=== PATIENT | male | born 1955 | race Caucasian/White ===

== ENCOUNTER 2018-12-04 16:31 | Inpatient (IN) | payer OTHER ==
[~2018-12-04] VITALS: Ht 182.9 cm; Wt 98.0 kg
[2018-12-04 18:27] VITALS: PULSE 117
[2018-12-04 18:28] VITALS: BP 141/82; PULSE 97; RESP 18
[2018-12-04] MEDS ORDERED: NACL 0.9% 3 ML SYG IV SCH (19:30)
[2018-12-04] MEDS ORDERED: LORAZEPAM 4 MG/ML VIAL IV PRN (19:30)
[2018-12-04 19:48] VITALS: Ht 182.9 cm; Wt 98.0 kg
[2018-12-04 20:00] VITALS: BP 149/69; PULSE 87; RESP 23
[2018-12-04 20:04] VITALS: PULSE 96
[2018-12-04] MEDS: DEXTROSE 5%-0.45% NACL 1,000 ML IV SCH (20:40)
[2018-12-04 22:42] VITALS: PULSE 142
[2018-12-04] MEDS: OCTREOTIDE 1 MG in DEXTROSE 5% 95 ML IV SCH (23:13)
[2018-12-04] MEDS: morphine SULFATE/PF (2 MG/2 ML) SYG IV PRN (23:15)
[2018-12-04] MEDS: PANTOPRAZOLE IV 80 MG in SOD CHLORIDE 0.9% 100 ML IV SCH (23:53)
[2018-12-05] VITALS (19 sets, daily range): BP systolic 112–148; BP diastolic 67–94; PULSE 63–90; RESP 17–22
[2018-12-05] MEDS ORDERED: PENDING SANTYL ORDER FOR WOUND CARE XX PRN (01:00)
[2018-12-05] MEDS: DEXTROSE 5%-0.45% NACL 1,000 ML IV SCH ×2 (03:16→06:36)
[2018-12-05] MEDS: morphine SULFATE/PF (2 MG/2 ML) SYG IV PRN ×5 (03:35→21:17)
[2018-12-05] MEDS ORDERED: METO-448 PO (05:26)
[2018-12-05] MEDS ORDERED: HYDR-4011 PO (05:26)
[2018-12-05] MEDS ORDERED: AMLO-147 PO (05:26)
[2018-12-05] MEDS: PANTOPRAZOLE IV 80 MG in SOD CHLORIDE 0.9% 100 ML IV SCH (07:11)
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
[2018-12-05] MEDS ORDERED: POTASSIUM CHLORIDE 100 ML IVPB ONE (10:30)
[2018-12-05] MEDS: PANTOPRAZOLE 40 MG INJ IV SCH (10:36)
[2018-12-05] MEDS: MULTIVITAMINS 10 ML, THIAMINE 100 MG, FOLIC ACID 1 MG in SOD CHLORIDE 0.9% 1,000 ML IVPB SCH (10:36)
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
[2018-12-05] MEDS ORDERED: MAGNESIUM SULFATE 4 GM/100 ML 100 ML IVPB ONE (14:00)
--- NOTE | 2018-12-05 14:08 | RADRPT ---
Echocardiogram Report Patient Name: VALERIE CLARKE Gender: Male Date: 1955 Study Date: 05-Dec-2018 [employer]: Namrata [facility] Location: [address] Ref. Physician: NILS STEELE Quality: Adequate Procedures: Transthoracic echocardiogram with complete 2D, M-Mode, and doppler examination. Indications: Atrial Fibrillation. 2D/M Mode Doppler Measurement Value Normal Ranges Measurement Value Normal Ranges LVIDd 2D 5.0 3.5 - 5.6 cm VELIA VTI 1.0 cm2 LVIDs 2D 3.3 2.1 - 4.1 cm AV Mean Keshav 1.7 m/sec LVPWd 2D 1.3 0.6 - 1.1 cm AV Mean PG 13.0 mmHg IVSd 2D 1.3 0.6 - 1.1 cm AV VTI 58.2 cm AoR Diam 2D 3.5 2.0 - 3.7 cm LVOT Mean Keshav 0.6 m/sec LA/Ao 2D 1 0 - 1 LVOT Mean PG 1.0 mmHg LA Dimen 2D 5.2 2.3 - 4.0 cm LVOT Peak Keshav 0.8 m/sec LVOT Diam 2.1 cm LVOT Peak PG 2.0 mmHg MV E Peak Keshav 0.9 m/sec MV A Peak Keshav 0.4 m/sec MV E/A 2.0 MV Decel Time 208 msec Lat E` Keshav 0.1 m/sec Lateral E/E` 16.4 Med E` Keshav 0.1 m/sec MV E/A 2.0 TR Peak Keshav 3.2 m/sec TR Peak PG 41.0 mmHg RVSP 44.0 mmHg Findings Left Ventricle: Normal left ventricular systolic function. Normal left ventricular cavity size. Mild concentric left ventricular hypertrophy. Ejection fraction is visually estimated at 55 %. Abnormal Diastolic Function. Right Ventricle: Normal right ventricular size. Normal right ventricular systolic function. Left Atrium: There is severe enlargement of left atrium. Right Atrium: The right atrium is normal in size. Mitral Valve: Mild mitral leaflet calcification. Mild mitral annular calcification. Trace mitral regurgitation. Aortic Valve: Mild aortic stenosis. Mean PG 13.00 mmHg. Aortic cusps appear severely calcified. Trace aortic valve regurgitation. Tricuspid Valve: Normal appearance of the tricuspid valve. Estimated peak PA systolic pressure 44 mmHg. There is mild tricuspid regurgitation. Pulmonic Valve: Pulmonic valve not well visualized. There is trace pulmonic regurgitation. Pericardium: Normal pericardium with no significant pericardial effusion. Aorta: Normal aortic root. IVC: Normal size and normal respiratory collapse consistent with normal right atrial pressure. Conclusions Normal left ventricular systolic function. Normal left ventricular cavity size. Mild concentric left ventricular hypertrophy. Ejection fraction is visually estimated at 55 %. Abnormal Diastolic Function. Normal right ventricular size. Normal right ventricular systolic function. There is severe enlargement of left atrium. The right atrium is normal in size. Mild aortic stenosis. Mean PG 13.00 mmHg. Aortic cusps appear severely calcified. Trace aortic valve regurgitation. Normal appearance of the tricuspid valve. Estimated peak PA systolic pressure 44 mmHg. There is mild tricuspid regurgitation. Mild mitral leaflet calcification. Mild mitral annular calcification. Trace mitral regurgitation. Normal pericardium with no significant pericardial effusion. Electronically Signed By: Jason Ackerman 05-Dec-2018 14:07:34 -0800 Patient Name: VALERIE CLARKE Study Date: 05-Dec-2018 [id number]
--- NOTE | 2018-12-05 15:10 | CONS ---
Date/Time of Note Date/Time of Note DATE: 12/05/18 TIME: 14:52 Assessment/Plan Assessment/Plan Assessment/Plan Assessment: Hematemesis/melena History of bleeding gastric ulcer one year ago Alcoholic liver disease Homelessness 2 large abdominal hernias with decreased incisional wound Alcohol abuse Pancytopenia secondary Chronic depression A. fib RVR likely due to alcoholism Cholelithiasis Plan: EGD today Continue octreotide drip Continue PPI Monitor H&H Transfuse for hemoglobin less than 7.5 Patient will need paracentesis Will restart on Aldactone and Lasix tomorrow Patient seen in collaboration with Result Diagram: 12/05/18 0632 12/05/18 0631 Results 24hrs Laboratory Tests Test 12/05/18 02:30 12/05/18 06:31 12/05/18 06:32 12/05/18 09:50 Stool Occult Blood POSITIVE Sodium Level 138 Potassium Level 3.1 L Chloride Level 102 Carbon Dioxide Level 25 Anion Gap 11 Blood Urea Nitrogen 12 Creatinine 0.62 Est Glomerular Filtrat > 60 Rate mL/min Glucose Level 152 Calcium Level 8.4 Phosphorus Level 2.7 Magnesium Level 1.6 L Total Bilirubin 1.4 H Direct Bilirubin 0.00 Indirect Bilirubin 1.4 H Aspartate Amino 36 Transf (AST/SGOT) Alanine 10 L Aminotransferase (ALT/SG PT) Alkaline Phosphatase 115 Total Protein 8.0 Albumin 3.0 L Globulin 5.00 H Albumin/Globulin Ratio 0.60 White Blood Count 2.5 L Red Blood Count 3.46 L Hemoglobin 9.2 L Hematocrit 28.7 L Mean Corpuscular Volume 82.9 Mean Corpuscular 26.6 L Hemoglobin Mean Corpuscular 32.1 Hemoglobin Concent Red Cell Distribution 16.6 H Width Platelet Count 71 L Mean Platelet Volume 10.5 H Immature Granulocytes % 0.400 Neutrophils % 60.5 Segmented Neutrophils 65 % (Manual) Band Neutrophils % 5 H (Manual) Lymphocytes % 23.8 Lymphocytes % (Manual) 22 Reactive Lymphocytes 3 H % (Manual) Monocytes % 14.1 H Monocytes % (Manual) 3 Eosinophils % 0.8 Eosinophils % (Manual) 1 Basophils % 0.4 Basophils % (Manual) 1 Nucleated Red Blood 0.0 Cells % Immature Granulocytes # 0.010 Neutrophils # 1.5 L Neutrophils # (Manual) 1.6 Band Neutrophils # 0.1 Lymphocytes (Manual) 0.5 L Lymphocytes # 0.6 L Reactive Lymphocytes # 0.0 Monocytes # 0.4 Monocytes # (Manual) 0.0 L Eosinophils # 0.0 Basophils # 0.0 Basophils # (Manual) 0.0 Nucleated Red Blood 0.0 Cells # Platelet Estimate DECREASED Giant Platelets 1 H Polychromasia 2+ Poikilocytosis 1+ Anisocytosis 1+ Ovalocytes 1+ Hemoglobin A1c 5.3 Prothrombin Time 16.7 H Prothrombin Time Ratio 1.3 INR International 1.34 Normalized Ratio Activated 36.9 H Partial Thromboplast Time CC: SOFIA TARIQ MD ; Consultation Date/Type/Reason Admit Date/Time Dec 04, 2018 at 17:58 Date of Consultation: Dec 05, 2018 Type of Consult GI Reason for Consultation Hematemesis/melena Hx of Present Illness This is a 63-year-old male with a history of bleeding gastric ulcer and alcoholic liver disease who presents with hematemesis and melena. Patient states his symptoms started yesterday when he had 4 episodes of bloody emesis and 6 episodes of loose melanotic stool. Patient reports a history of bleeding ulcer one year ago diagnosed on EGD. Patient also had abdominal hernias repaired with complications and wound adhesion, currently has 2 large abdominal hernias secured with abdominal binder and midline abdominal wound covered with dressing. Patient is homeless and currently drinking. His last drink was 3 days ago. Last colonoscopy was 1 year ago. Patient does not recall whether he had variances on the last EGD. He is currently on Lasix and Spironolactone for ascites however reports misplacing his meds. Patient currently denies nausea, vomiting, hematochezia, constipation or fever. Patient is complaining of abdominal pain from bursitis and right broken rib. His current hemoglobin is 9.4. The plan is to do an EGD today for hemostasis. Risks and benefits of the procedure have been discussed with the patient. Patient is agreeable for the procedure. Gastrointestinal: no complaints (See HPI) Past Medical History Medical History: no pertinent history Medications Current Medications Dextrose/Sodium Chloride 1,000 ml @ 75 mls/hr [id number] IV Last administered on 12/05/18at 06:36; Admin Dose 125 MLS/HR; Start 12/04/18 at 19:16 IV Flush (NS 3 ml) 3 ml PER PROTOCOL IV ; Start 12/04/18 at 19:30 Ondansetron HCl (Zofran Inj) 4 mg Q6H PRN IV NAUSEA AND/OR VOMITING; Start 12/04/18 at 19:30 Morphine Sulfate (morphine SULFATE (PF)) 2 mg Q4H PRN IV SEVERE PAIN LEVEL 7-10 Last administered on 12/05/18at 11:37; Admin Dose 2 MG; Start 12/04/18 at 19:30 Octreotide Acetate 1 mg/ Dextrose 100 ml @ 5 mls/hr Q20H IV Last administered on 12/04/18at 23:13; Admin Dose 5 MLS/HR; Start 12/04/18 at 19:30 Lorazepam (Ativan) 1 mg Q6H PRN IV CONTROL WITHDRAWAL SYMPTOMS Last administered on 12/04/18at 20:40; Admin Dose 1 MG; Start 12/04/18 at 19:30 Multivitamins 10 ml/Thiamine HCl 100 mg/Folic Acid 1 mg/Sodium Chloride 1,011.2 ml @ 125 mls/ hr DAILY@09 IVPB Last administered on 12/05/18at 10:36; Admin Dose 125 MLS/HR; Start 12/05/18 at 09:00 Miscellaneous Information (Pending [facility] Order For Wound Care) This patient sanchez... PRN PRN XX PRESSURE WOUND; Start 12/05/18 at 01:00 Influenza Virus Vaccine Quadrival (Fluzone) 0.5 ml ONCE ONCE IM* ; Start 12/06/18 at 10:00; Stop 12/06/18 at 10:01 Pantoprazole (Protonix Iv) 40 mg DAILY@06 IV Last administered on 12/05/18at 10:36; Admin Dose 40 MG; Start 12/05/18 at 09:30 Magnesium Sulfate 100 ml @ 25 mls/hr ONCE ONCE IVPB ; Start 12/05/18 at 14:00; Stop 12/05/18 at 17:59 Clonidine HCl (Catapres-Tts 1 Patch) 1 patch Q7D TRANSDERM ; Start 12/06/18 at 14:00 Potassium Chloride (Klor-Con 20) 40 meq DAILY PO ; Start 12/05/18 at 14:30 Allergies: Coded Allergies: No Known Allergy (Unverified , 12/04/18) Past Surgical History Hernia repair Social History Alcohol Use: heavy Smoking Status: Never smoker Exam/Review of Systems Vital Signs Vitals Vital Signs Date Temp Pulse Resp B/P (MAP) Pulse Ox O2 O2 Flow FiO2 Time Delivery Rate 12/05/18 77 12:31 12/05/18 98.0 18 132/83 97 Room Air 11:09 (99) Intake and Output 12/04/18 12/04/18 12/05/18 1515:00 23:00 07:00 IntakeIntake Total 2105 ml OutputOutput Total 950 ml BalanceBalance 1155 ml Exam PHYSICAL EXAMINATION: GENERAL: Well developed, well nourished, alert & oriented x 3, in no acute distress SKIN: Midline abdominal wound, multiple bruising, no evidence of bleeding diathesis LYMPHATIC: No palpable lymphadenopathy. HEAD: Normocephalic, atraumatic, no tenderness. EYES: Pupils equal reactive to light and accommodation, full extraocular movements, sclera clear, non-icteric, no discharge. EARS/NOSE AND THROAT: Ears normal, nose normal, oropharynx normal, oral membranes well hydrated without lesions. NECK: Supple, no masses, thyroid normal, JVP within normal limits, carotids normal without bruits. CHEST: Inspection within normal limits. CARDIOVASCULAR: Heart: Regular rate and rhythm, no murmurs, gallops or rubs. Peripheral pulses present within normal limits, no cyanosis, clubbing or edemas. No pulsatile abdominal mass RESPIRATORY: Lungs clear to auscultation and percussion, no wheezing, no rubs GASTROINTESTINAL AND LIVER: Abdomen: Soft, generalized tenderness, moderate ascites, 2 large abdominal hernias, distended, midline decreased wound covered with dressing, no guarding, no rebound tenderness, normoactive bowel sounds. Rectal: Deferred. GENITOURINARY: [Male genitalia within normal limits. EXTREMITIES: No cyanosis, clubbing or edema. Medications Medications Current Medications Dextrose/Sodium Chloride 1,000 ml @ 75 mls/hr [id number] IV Last administered on 12/05/18at 06:36; Admin Dose 125 MLS/HR; Start 12/04/18 at 19:16 IV Flush (NS 3 ml) 3 ml PER PROTOCOL IV ; Start 12/04/18 at 19:30 Ondansetron HCl (Zofran Inj) 4 mg Q6H PRN IV NAUSEA AND/OR VOMITING; Start 12/04/18 at 19:30 Morphine Sulfate (morphine SULFATE (PF)) 2 mg Q4H PRN IV SEVERE PAIN LEVEL 7-10 Last administered on 12/05/18at 11:37; Admin Dose 2 MG; Start 12/04/18 at 19:30 Octreotide Acetate 1 mg/ Dextrose 100 ml @ 5 mls/hr Q20H IV Last administered on 12/04/18at 23:13; Admin Dose 5 MLS/HR; Start 12/04/18 at 19:30 Lorazepam (Ativan) 1 mg Q6H PRN IV CONTROL WITHDRAWAL SYMPTOMS Last administered on 12/04/18at 20:40; Admin Dose 1 MG; Start 12/04/18 at 19:30 Multivitamins 10 ml/Thiamine HCl 100 mg/Folic Acid 1 mg/Sodium Chloride 1,011.2 ml @ 125 mls/ hr DAILY@09 IVPB Last administered on 12/05/18at 10:36; Admin Dose 125 MLS/HR; Start 12/05/18 at 09:00 Miscellaneous Information (Pending [facility] Order For Wound Care) This patient sanchez... PRN PRN XX PRESSURE WOUND; Start 12/05/18 at 01:00 Influenza Virus Vaccine Quadrival (Fluzone) 0.5 ml ONCE ONCE IM* ; Start 12/06/18 at 10:00; Stop 12/06/18 at 10:01 Pantoprazole (Protonix Iv) 40 mg DAILY@06 IV Last administered on 12/05/18at 10:36; Admin Dose 40 MG; Start 12/05/18 at 09:30 Magnesium Sulfate 100 ml @ 25 mls/hr ONCE ONCE IVPB ; Start 12/05/18 at 14:00; Stop 12/05/18 at 17:59 Clonidine HCl (Catapres-Tts 1 Patch) 1 patch Q7D TRANSDERM ; Start 12/06/18 at 14:00 Potassium Chloride (Klor-Con 20) 40 meq DAILY PO ; Start 12/05/18 at 14:30 HARRIET SMITH NP Dec 05, 2018 15:05
[2018-12-05] MEDS ORDERED: LIDOCAINE 2% (SDV) 5 ML INJ ONE (15:14)
[2018-12-05] MEDS ORDERED: PROPOFOL 40 ML ONE (15:14)
--- NOTE | 2018-12-05 15:31 | HPN ---
Date/Time of Note Date/Time of Note DATE: 12/05/18 TIME: 15:31 Interval H&P Admission Note Pt. seen H&P reviewed: No system changes GINNY CALLAHAN Dec 05, 2018 15:31
[2018-12-05] MEDS: POTASSIUM CHLORIDE (SR) 20 MEQ TAB PO SCH (17:23)
[2018-12-05] MEDS: OCTREOTIDE 1 MG in DEXTROSE 5% 95 ML IV SCH (17:51)
[2018-12-05] MEDS: traZODone 100 MG TAB PO SCH (21:12)
[2018-12-06] VITALS (14 sets, daily range): BP systolic 118–146; BP diastolic 69–94; PULSE 74–92; RESP 17–20
[2018-12-06] MEDS: morphine SULFATE/PF (2 MG/2 ML) SYG IV PRN ×5 (03:23→20:17)
[2018-12-06] MEDS: DEXTROSE 5%-0.45% NACL 1,000 ML IV SCH ×2 (03:23→12:20)
[2018-12-06] MEDS: PANTOPRAZOLE 40 MG INJ IV SCH (06:25)
[2018-12-06] MEDS: ONDANSETRON 4 MG INJ IV PRN (06:30)
[2018-12-06] MEDS: POTASSIUM CHLORIDE (SR) 20 MEQ TAB PO SCH (08:55)
[2018-12-06] MEDS: MULTIVITAMINS 10 ML, THIAMINE 100 MG, FOLIC ACID 1 MG in SOD CHLORIDE 0.9% 1,000 ML IVPB SCH (08:55)
[2018-12-06] MEDS: SPIRONOLACTONE 50 MG TAB PO SCH (08:55)
[2018-12-06] MEDS: OCTREOTIDE 1 MG in DEXTROSE 5% 95 ML IV SCH (08:55)
--- NOTE | 2018-12-06 13:49 | PN ---
Date/Time of Note Date/Time of Note DATE: 12/06/18 TIME: 13:25 Assessment/Plan VTE Prophylaxis Risk score (from Nsg)>0 risk: 4 SCD applied (from Nsg): Yes Pharmacological prophylaxis: other (scds) Lines/Catheters Urinary Cath still in place: No Assessment/Plan Hospital Course Assessment/Plan Assessment: Hematemesis/melena EGD 12/05/17 Portal hypertension gastropathy No active bleeding Routine fluidlavage. 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 fib RVR Cholelithiasis Plan: Paracentesis today - with fluid studies Continue PPI- stop octreotide Keep INR less than 1.5 Keep hemoglobin above 7.5 Alcohol sensation 2 g low-sodium diet as tolerated, Recommend starting propranolol 10 mg po BID for EV monitor labs Patient seen in collaboration with Subjective: Course reviewed with nursing staff Patient interviewed and examined All labs, imaging and other results reviewed The patient states he feels pressure from his abdomen, some difficulty breathing, has to lye on his side, believes this is 2/2 to ascites no overt signs of GI bleed. No current c/o nausea or vomiting. Will order paracentesis for today PHYSICAL EXAMINATION: GENERAL: Well developed, well nourished, alert & oriented x 3, in no acute distress SKIN: Midline abdominal wound, multiple bruising, no evidence of bleeding diathesis EYES: Pupils equal reactive to light no discharge. EARS/NOSE AND THROAT: Ears normal, nose normal, oropharynx normal NECK: Supple CHEST: Inspection within normal limits. CARDIOVASCULAR: Heart: Regular rate and rhythm RESPIRATORY: Lungs clear to auscultation GASTROINTESTINAL AND LIVER: Abdomen: Soft, generalized tenderness, moderate ascites, 2 large abdominal hernias, distended, midline decreased wound covered with dressing, no guarding, no rebound tenderness, normoactive bowel sounds. Rectal: Deferred. Result Diagram: 12/06/18 0555 12/06/18 0555 Results 24hrs Laboratory Tests Test 12/06/18 05:55 White Blood Count 2.4 L Red Blood Count 3.71 L Hemoglobin 10.0 L Hematocrit 31.1 L Mean Corpuscular Volume 83.8 Mean Corpuscular Hemoglobin 27.0 L Mean Corpuscular Hemoglobin Concent 32.2 Red Cell Distribution Width 16.5 H Platelet Count 62 L Mean Platelet Volume 10.9 H Immature Granulocytes % 0.400 Neutrophils % Segmented Neutrophils % (Manual) 76 Band Neutrophils % (Manual) 1 Lymphocytes % Lymphocytes % (Manual) 9 L Monocytes % Monocytes % (Manual) 6 Eosinophils % Eosinophils % (Manual) 7 Basophils % Basophils % (Manual) 1 Nucleated Red Blood Cells % 0.0 Immature Granulocytes # 0.010 Neutrophils # Neutrophils # (Manual) 1.8 Band Neutrophils # 0.0 Lymphocytes (Manual) 0.2 L Lymphocytes # Monocytes # Monocytes # (Manual) 0.1 L Eosinophils # Basophils # Basophils # (Manual) 0.0 Nucleated Red Blood Cells # Platelet Estimate SIG DECREASED Giant Platelets 2 H Polychromasia 1+ Poikilocytosis 1+ Anisocytosis 1+ Target Cells 1+ Ovalocytes 1+ Prothrombin Time 16.0 H Prothrombin Time Ratio 1.3 INR International Normalized Ratio 1.27 Activated Partial Thromboplast Time 34.2 Sodium Level 137 Potassium Level 3.7 Chloride Level 103 Carbon Dioxide Level 24 Anion Gap 10 Blood Urea Nitrogen 8 Creatinine 0.72 Est Glomerular Filtrat Rate mL/min > 60 Glucose Level 167 Calcium Level 8.3 L Magnesium Level 1.8 Total Bilirubin 1.0 Direct Bilirubin 0.00 Indirect Bilirubin 1.0 Aspartate Amino Transf (AST/SGOT) 34 Alanine Aminotransferase (ALT/SGPT) 16 Alkaline Phosphatase 101 Troponin I 0.013 Total Protein 7.4 Albumin 2.8 L Globulin 4.60 H Albumin/Globulin Ratio 0.60 Lipase 84 Thyroid Stimulating Hormone (TSH) 0.618 Hepatitis B Surface Antigen NEGATIVE Hepatitis B Core Total Antibody NEGATIVE Hepatitis C Antibody NEGATIVE Exam/Review of Systems Vital Signs Vitals Vital Signs Date Temp Pulse Resp B/P (MAP) Pulse Ox O2 O2 Flow FiO2 Time Delivery Rate 12/06/18 97.6 82 18 122/79 100 Room Air 11:42 (93) 12/05/18 6.0 15:49 Intake and Output 12/05/18 12/05/18 12/06/18 1515:00 23:00 07:00 IntakeIntake Total 420 ml 500 ml OutputOutput Total 980 ml 200 ml BalanceBalance -560 ml 300 ml Medications Medications Current Medications Dextrose/Sodium Chloride 1,000 ml @ 75 mls/hr [id number] IV Last administered on 12/06/18 03:23; Admin Dose 75 MLS/HR; Start 12/04/18 at 19:16 IV Flush (NS 3 ml) 3 ml PER PROTOCOL IV ; Start 12/04/18 at 19:30 Ondansetron HCl (Zofran Inj) 4 mg Q6H PRN IV NAUSEA AND/OR VOMITING Last administered on 12/06/18 06:30; Admin Dose 4 MG; Start 12/04/18 at 19:30 Morphine Sulfate (morphine SULFATE (PF)) 2 mg Q4H PRN IV SEVERE PAIN LEVEL 7-10 Last administered on 12/06/18 11:22; Admin Dose 2 MG; Start 12/04/18 at 19:30 Octreotide Acetate 1 mg/ Dextrose 100 ml @ 5 mls/hr Q20H IV Last administered on 12/06/18 08:55; Admin Dose 5 MLS/HR; Start 12/04/18 at 19:30 Lorazepam (Ativan) 1 mg Q6H PRN IV CONTROL WITHDRAWAL SYMPTOMS Last administered on 12/04/18 20:40; Admin Dose 1 MG; Start 12/04/18 at 19:30 Multivitamins 10 ml/Thiamine HCl 100 mg/Folic Acid 1 mg/Sodium Chloride 1,011.2 ml @ 125 mls/ hr DAILY@09 IVPB Last administered on 12/06/18 08:55; Admin Dose 125 MLS/HR; Start 12/05/18 at 09:00 Miscellaneous Information (Pending [facility] Order For Wound Care) This patient sanchez... PRN PRN XX PRESSURE WOUND; Start 12/05/18 at 01:00 Pantoprazole (Protonix Iv) 40 mg DAILY@06 IV Last administered on 12/06/18 06:25; Admin Dose 40 MG; Start 12/05/18 at 09:30 Clonidine HCl (Catapres-Tts 1 Patch) 1 patch Q7D TRANSDERM ; Start 12/06/18 at 14:00 Potassium Chloride (Klor-Con 20) 40 meq DAILY PO Last administered on 12/06/18 08:55; Admin Dose 40 MEQ; Start 12/05/18 at 14:30 Spironolactone (Aldactone) 100 mg DAILY PO Last administered on 1/5/19at 08:55; Admin Dose 100 MG; Start 12/06/18 at 09:00 Trazodone HCl (Desyrel) 100 mg HS PO Last administered on 12/05/18at 21:12; Admin Dose 100 MG; Start 12/05/18 at 21:00 SINDY ALTAMIRANO Dec 06, 2018 13:36
[2018-12-06] MEDS ORDERED: CLONIDINE 0.1 MG/24 HR PATCH TRANSDERM SCH (14:00)
[2018-12-06] MEDS ORDERED: LIDOCAINE 1% (MPF) 5 ML VIAL ONE (15:26)
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
[2018-12-06] MEDS: traZODone 100 MG TAB PO SCH (20:17)
[2018-12-06] MEDS: PROPRANOLOL 10 MG TAB PO SCH (20:20)
[2018-12-07] VITALS (10 sets, daily range): BP systolic 104–120; BP diastolic 59–85; PULSE 64–88; RESP 16–19
[2018-12-07] MEDS: morphine SULFATE/PF (2 MG/2 ML) SYG IV PRN ×6 (00:17→21:44)
[2018-12-07] MEDS: PANTOPRAZOLE 40 MG INJ IV SCH (05:17)
[2018-12-07] MEDS: PROPRANOLOL 10 MG TAB PO SCH ×2 (08:14→22:14)
[2018-12-07] MEDS: SPIRONOLACTONE 50 MG TAB PO SCH (08:15)
[2018-12-07] MEDS: POTASSIUM CHLORIDE (SR) 20 MEQ TAB PO SCH (08:15)
[2018-12-07] MEDS: MULTIVITAMINS 10 ML, THIAMINE 100 MG, FOLIC ACID 1 MG in SOD CHLORIDE 0.9% 1,000 ML IVPB SCH (09:15)
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
--- NOTE | 2018-12-07 14:28 | PN ---
Date/Time of Note Date/Time of Note DATE: 12/07/18 TIME: 14:18 Assessment/Plan VTE Prophylaxis Risk score (from Nsg)>0 risk: 3 SCD applied (from Nsg): Yes Pharmacological prophylaxis: other (scds) Lines/Catheters IV Catheter Type (from Nrs): Peripheral IV Urinary Cath still in place: No Assessment/Plan Hospital Course Assessment/Plan Assessment: Hematemesis/melena EGD 12/05/17 Portal hypertension gastropathy No active bleeding Routine fluidlavage. If future issues with gastric retention, consider workup for gastroparesis Esophageal varicesGrade 0-1, too small to band History of bleeding gastric ulcer one year ago Decompensated Alcoholic liver disease- DF 6.1 -S/p paracentesis 12/06/18-5 L removed Pancytopenia Alcohol abuse Homelessness 2 large abdominal hernias with decreased incisional wound Chronic depression A. fib RVR Cholelithiasis Plan: Continue PPI/propranolol 10 mg PO BID for EV Keep INR less than 1.5, Keep hemoglobin above 7.5 Discussed need to stop ETOH use 2g sodium diet as tolerated Monitor labs D/c planning per patient Pt will need to f/u with his GI after discharge Patient seen in collaboration with Subjective: Course reviewed with nursing staff Patient interviewed and examined All labs, imaging and other results reviewed Patient states he feels much better post paracentesis. Able to tolerate diet much better today, HGB improving, no overt signs of GI bleed. Again reviewed results of EGD and treatment plan. After discharge pt to f/u with his GI doctor PHYSICAL EXAMINATION: GENERAL: Well developed, well nourished, alert & oriented x 3, in no acute distress SKIN: Midline abdominal wound, multiple bruising, no evidence of bleeding diathesis EYES: Pupils equal reactive to light no discharge. EARS/NOSE AND THROAT: Ears normal, nose normal, oropharynx normal NECK: Supple CHEST: Inspection within normal limits. CARDIOVASCULAR: Heart: Regular rate and rhythm RESPIRATORY: Lungs clear to auscultation GASTROINTESTINAL AND LIVER: Abdomen: Soft, generalized tenderness, ascites, 2 large abdominal hernias, distended- improved post paracentesis, midline decreased wound covered with dressing, no guarding, no rebound tenderness, normoactive bowel sounds. Rectal: Deferred. Result Diagram: 12/07/18 0556 12/07/18 0556 Results 24hrs Laboratory Tests Test 1/5/19 15:20 12/07/18 05:56 Body Fluid Type FLUID Body Fluid Volume 1000.0 Body Fluid Color YELLOW Body Fluid Appearance SLIGHTLY HAZY Body Fluid WBC 255 Body Fluid RBC (Auto) 2000 Body Fluid Polynuclear WBCs (%) 11.8 Body Fluid Mononuclear Cells % Auto 88.2 Body Fluid Lactate Dehydrogenase 242 White Blood Count 4.0 #L Red Blood Count 3.94 L Hemoglobin 10.8 L Hematocrit 33.4 L Mean Corpuscular Volume 84.8 Mean Corpuscular Hemoglobin 27.4 L Mean Corpuscular Hemoglobin Concent 32.3 Red Cell Distribution Width 16.5 H Platelet Count 63 L Mean Platelet Volume 10.7 H Immature Granulocytes % 0.300 Neutrophils % 73.3 Lymphocytes % 12.8 L Monocytes % 9.3 Eosinophils % 4.0 Basophils % 0.3 Nucleated Red Blood Cells % 0.0 Immature Granulocytes # 0.010 Neutrophils # 2.9 Lymphocytes # 0.5 L Monocytes # 0.4 Eosinophils # 0.2 Basophils # 0.0 Nucleated Red Blood Cells # 0.0 Sodium Level 134 L Potassium Level 4.3 Chloride Level 104 Carbon Dioxide Level 21 Anion Gap 9 Blood Urea Nitrogen 5 L Creatinine 0.73 Est Glomerular Filtrat Rate mL/min > 60 Glucose Level 105 # Calcium Level 8.4 Magnesium Level 1.6 L Total Bilirubin 1.0 Direct Bilirubin 0.00 Indirect Bilirubin 1.0 Aspartate Amino Transf (AST/SGOT) 31 Alanine Aminotransferase (ALT/SGPT) 15 Alkaline Phosphatase 99 Total Protein 7.2 Albumin 2.7 L Globulin 4.50 H Albumin/Globulin Ratio 0.60 Lipase 87 Exam/Review of Systems Vital Signs Vitals Vital Signs Date Temp Pulse Resp B/P (MAP) Pulse Ox O2 O2 Flow FiO2 Time Delivery Rate 12/07/18 73 12:11 12/07/18 97.9 19 106/75 97 Room Air 11:27 (85) 12/05/18 6.0 15:49 Intake and Output 12/06/18 12/06/18 12/07/18 1515:00 23:00 07:00 IntakeIntake Total 225 ml 2125 ml 420 ml OutputOutput Total 5000 ml 600 ml BalanceBalance 225 ml -2875 ml -180 ml Medications Medications Current Medications IV Flush (NS 3 ml) 3 ml PER PROTOCOL IV ; Start 12/04/18 at 19:30 Ondansetron HCl (Zofran Inj) 4 mg Q6H PRN IV NAUSEA AND/OR VOMITING Last administered on 12/06/18 06:30; Admin Dose 4 MG; Start 12/04/18 at 19:30 Morphine Sulfate (morphine SULFATE (PF)) 2 mg Q4H PRN IV SEVERE PAIN LEVEL 7-10 Last administered on 12/07/18 13:01; Admin Dose 2 MG; Start 12/04/18 at 19:30 Lorazepam (Ativan) 1 mg Q6H PRN IV CONTROL WITHDRAWAL SYMPTOMS Last administered on 12/04/18 20:40; Admin Dose 1 MG; Start 12/04/18 at 19:30 Miscellaneous Information (Pending [facility] Order For Wound Care) This patient sanchez... PRN PRN XX PRESSURE WOUND; Start 12/05/18 at 01:00 Pantoprazole (Protonix Iv) 40 mg DAILY@06 IV Last administered on 12/07/18 05:17; Admin Dose 40 MG; Start 12/05/18 at 09:30 Potassium Chloride (Klor-Con 20) 40 meq DAILY PO Last administered on 12/07/18 08:15; Admin Dose 40 MEQ; Start 12/05/18 at 14:30 Spironolactone (Aldactone) 100 mg DAILY PO Last administered on 12/07/18 08:15; Admin Dose 100 MG; Start 12/06/18 at 09:00 Trazodone HCl (Desyrel) 100 mg HS PO Last administered on 12/06/18 20:17; Admin Dose 100 MG; Start 12/05/18 at 21:00 Propranolol HCl (Inderal) 10 mg BID PO Last administered on 12/07/18 08:14; Admin Dose 10 MG; Start 12/06/18 at 21:00 SINDY ALTAMIRANO Dec 07, 2018 14:28
[2018-12-07] MEDS: traZODone 100 MG TAB PO SCH (22:14)
[2018-12-08 02:35] VITALS: BP 131/83; PULSE 84
[2018-12-08] MEDS: morphine SULFATE/PF (2 MG/2 ML) SYG IV PRN ×5 (02:39→20:06)
[2018-12-08 02:57] VITALS: BP 98/71; PULSE 68; RESP 18
[2018-12-08] MEDS: PANTOPRAZOLE 40 MG INJ IV SCH (05:29)
[2018-12-08] MEDS: ONDANSETRON 4 MG INJ IV PRN ×2 (07:29→16:06)
[2018-12-08 08:00] VITALS: BP 97/63; PULSE 73; RESP 18
[2018-12-08] MEDS: SPIRONOLACTONE 50 MG TAB PO SCH (09:00)
[2018-12-08] MEDS ORDERED: SPIRONOLACTONE 25 MG TAB PO SCH (10:01)
[2018-12-08] MEDS: POTASSIUM CHLORIDE (SR) 20 MEQ TAB PO SCH (10:02)
[2018-12-08] MEDS: PROPRANOLOL 10 MG TAB PO SCH ×2 (10:06→20:09)
--- NOTE | 2018-12-08 12:04 | PN ---
Date/Time of Note Date/Time of Note DATE: 12/08/18 TIME: 11:54 Assessment/Plan VTE Prophylaxis Risk score (from Ns)>0 risk: 3 SCD applied (from Nsg): Yes Pharmacological prophylaxis: other (scds) Lines/Catheters IV Catheter Type (from Nrsg): Saline Lock Urinary Cath still in place: No Assessment/Plan Hospital Course Assessment/Plan Assessment: Hematemesis/melena EGD 12/05/17 Portal hypertension gastropathy No active bleeding Routine fluidlavage. If future issues with gastric retention, consider workup for gastroparesis Esophageal varicesGrade 0-1, too small to band History of bleeding gastric ulcer one year ago Decompensated Alcoholic liver disease/cirrhosis- DF 6.1 -S/p paracentesis 12/06/18- 5 L removed Pancytopenia Alcohol abuse- discussed need to quit Homelessness 2 large abdominal hernias with decreased incisional wound Chronic depression A. fib RVR Cholelithiasis Plan: Continue PPI/propranolol 10 mg PO BID for EV Keep INR less than 1.5, Keep hemoglobin above 7.5 Discussed need to stop ETOH use 2g sodium diet as tolerated Monitor labs D/c planning per hospitalist Pt will need to f/u with his GI after discharge Patient seen in collaboration with Subjective: Course reviewed with nursing staff Patient interviewed and examined All labs, imaging and other results reviewed Pt resting in bed, c/o rib pain, states 8/10 however currently having a normal conversation, does not to physically be in any pain. Pt states he has had x4 episodes of watery diarrhea. we will check stool for CDIFF. PHYSICAL EXAMINATION: GENERAL: Well developed, well nourished, alert & oriented x 3, in no acute distress SKIN: Midline abdominal wound, multiple bruising CHEST: Inspection within normal limits. CARDIOVASCULAR: Heart: Regular rate and rhythm RESPIRATORY: Lungs clear to auscultation GASTROINTESTINAL AND LIVER: Abdomen: Soft, generalized tenderness, pt c/o rib pain, ascites, 2 large abdominal hernias, distended- improved post paracentesis, midline decreased wound covered with dressing, no guarding, no rebound tenderness, normoactive bowel sounds. Rectal: Deferred. Result Diagram: 12/08/18 0720 12/08/18 0720 Results 24hrs Laboratory Tests Test 12/08/18 07:20 White Blood Count 3.5 L Red Blood Count 4.10 L Hemoglobin 11.2 L Hematocrit 34.8 L Mean Corpuscular Volume 84.9 Mean Corpuscular Hemoglobin 27.3 L Mean Corpuscular Hemoglobin Concent 32.2 Red Cell Distribution Width 17.8 H Platelet Count 66 L Mean Platelet Volume 11.5 H Immature Granulocytes % 1.100 H Neutrophils % 69.8 Lymphocytes % 13.6 L Monocytes % 12.4 H Eosinophils % 2.8 Basophils % 0.3 Nucleated Red Blood Cells % 0.0 Immature Granulocytes # 0.040 H Neutrophils # 2.5 Lymphocytes # 0.5 L Monocytes # 0.4 Eosinophils # 0.1 Basophils # 0.0 Nucleated Red Blood Cells # 0.0 Prothrombin Time 14.6 Prothrombin Time Ratio 1.1 INR International Normalized Ratio 1.13 Sodium Level 135 Potassium Level 4.7 Chloride Level 104 Carbon Dioxide Level 20 L Anion Gap 11 Blood Urea Nitrogen 8 Creatinine 0.75 Est Glomerular Filtrat Rate mL/min > 60 Glucose Level 100 Calcium Level 8.3 L Magnesium Level 1.5 L Total Bilirubin 0.8 Direct Bilirubin 0.00 Indirect Bilirubin 0.8 Aspartate Amino Transf (AST/SGOT) 43 Alanine Aminotransferase (ALT/SGPT) 17 Alkaline Phosphatase 112 Total Protein 7.2 Albumin 2.8 L Globulin 4.40 H Albumin/Globulin Ratio 0.63 Exam/Review of Systems Vital Signs Vitals Vital Signs Date Temp Pulse Resp B/P (MAP) Pulse Ox O2 O2 Flow FiO2 Time Delivery Rate 12/08/18 98.1 73 18 97/63 (74) 96 08:00 12/07/18 Room Air 20:00 12/05/18 6.0 15:49 Intake and Output 12/07/18 12/07/18 12/08/18 1515:00 23:00 07:00 OutputOutput Total 450 ml BalanceBalance -450 ml Medications Medications Current Medications IV Flush (NS 3 ml) 3 ml PER PROTOCOL IV ; Start 12/04/18 at 19:30 Ondansetron HCl (Zofran Inj) 4 mg Q6H PRN IV NAUSEA AND/OR VOMITING Last administered on 12/08/18at 07:29; Admin Dose 4 MG; Start 12/04/18 at 19:30 Morphine Sulfate (morphine SULFATE (PF)) 2 mg Q4H PRN IV SEVERE PAIN LEVEL 7-10 Last administered on 1/7/19at 07:29; Admin Dose 2 MG; Start 12/04/18 at 19:30 Lorazepam (Ativan) 1 mg Q6H PRN IV CONTROL WITHDRAWAL SYMPTOMS Last administered on 12/04/18 20:40; Admin Dose 1 MG; Start 12/04/18 at 19:30 Miscellaneous Information (Pending Santyl Order For Wound Care) This patient sanchez... PRN PRN XX PRESSURE WOUND; Start 12/05/18 at 01:00 Pantoprazole (Protonix Iv) 40 mg DAILY@06 IV Last administered on 12/08/18 05:29; Admin Dose 40 MG; Start 12/05/18 at 09:30 Potassium Chloride (Klor-Con 20) 40 meq DAILY PO Last administered on 12/08/18 10:02; Admin Dose 40 MEQ; Start 12/05/18 at 14:30 Spironolactone (Aldactone) 100 mg DAILY PO Last administered on 12/07/18 08:15; Admin Dose 100 MG; Start 12/06/18 at 09:00 Trazodone HCl (Desyrel) 100 mg HS PO Last administered on 12/07/18 22:14; Admin Dose 100 MG; Start 12/05/18 at 21:00 Propranolol HCl (Inderal) 10 mg BID PO Last administered on 12/07/18 22:14; Admin Dose 10 MG; Start 12/06/18 at 21:00 SINDY ALTAMIRANO Dec 08, 2018 12:04
[2018-12-08 14:00] VITALS: BP 103/65; PULSE 76; RESP 18
--- NOTE | 2018-12-08 17:23 | PN ---
Date/Time of Note Date/Time of Note DATE: 12/08/18 TIME: 17:22 Assessment/Plan VTE Prophylaxis Risk score (from Ns)>0 risk: 3 SCD applied (from Ns): Yes Pharmacological prophylaxis: NA/contraindicated Pharm contraindication: liver dx Lines/Catheters [facility] Saline Lock Urinary Cath still in place: No Assessment/Plan Hospital Course SUBJECTIVE: Denies any abdominal pain. OBJECTIVE: Physical Exam General: Adequately build 63-year-old male lying in bed in no apparent distress. HEENT: Normocephalic, atraumatic. Eyes: Anicteric sclerae, conjunctivae clear. ENT: Nasal septum midline, oral mucosa moist. Neck supple, no JVD noticed. Respiratory: Bilaterally diminished breath sounds. No use of accessory muscles of respiration. No adventitious breath sounds. Cardiovascular: S1, S2 heard. Abdomen: Ascites. Abdominal binder in place.. Bowel sounds positive in all 4 quadrants. Genitourinary: Deferred. Extremities: No cyanosis, no clubbing, no edema. Peripheral pulses palpable. Neurologic: Cranial nerves II through XII grossly intact. The patient is awake, alert, and oriented. Labs & Vitals per chart ASSESSMENT & PLAN 63-year-old male with a decompensated EtOH cirrhosis, A. fib, pulmonary hypertension, chronic abdominal wall wound secondary to a complication from previous surgery, and homelessness. The patient was seen at an outside ER for evaluation of vomiting blood and dark stool. Therefore, the patient was transferred to [facility] for further evaluation because of insurance reasons. 1. Gastrointestinal bleeding. -Status post esophagogastroduodenoscopy that showed no evidence of active bleeding. -However it showed portal hypertension and gastropathy with grade 0-1 esophageal varices. -Continue PPI and propranolol. 2. Decompensated alcoholic liver cirrhosis. -Status post paracentesis on 12/06/2017 with removal of 5 L of fluid. -Continue Aldactone. 3. Paroxysmal atrial fibrillation. -Likely secondary to electrolyte imbalances. -Resolved. 4. Chronic ventral hernia. -Continue abdominal binder. 5. Coagulopathy. -Most probably secondary to underlying liver disease. -Monitor for any bleeding. -Monitor H&H closely. 6. Homeless status. -Being followed by licensed clinical social worker. 7. Fluids, electrolytes, and nutrition. -Low-cholesterol diet. 8. DVT prophylaxis -Bilateral SCDs. 9. Plan. -Continue PPI. -Monitor H&H closely. -Needs placement. The patient was seen in collaboration with Dr. Ying Result Diagram: 12/08/18 0720 12/08/18 0720 Results 24hrs Laboratory Tests Test 12/08/18 07:20 White Blood Count 3.5 L Red Blood Count 4.10 L Hemoglobin 11.2 L Hematocrit 34.8 L Mean Corpuscular Volume 84.9 Mean Corpuscular Hemoglobin 27.3 L Mean Corpuscular Hemoglobin Concent 32.2 Red Cell Distribution Width 17.8 H Platelet Count 66 L Mean Platelet Volume 11.5 H Immature Granulocytes % 1.100 H Neutrophils % 69.8 Lymphocytes % 13.6 L Monocytes % 12.4 H Eosinophils % 2.8 Basophils % 0.3 Nucleated Red Blood Cells % 0.0 Immature Granulocytes # 0.040 H Neutrophils # 2.5 Lymphocytes # 0.5 L Monocytes # 0.4 Eosinophils # 0.1 Basophils # 0.0 Nucleated Red Blood Cells # 0.0 Prothrombin Time 14.6 Prothrombin Time Ratio 1.1 INR International Normalized Ratio 1.13 Sodium Level 135 Potassium Level 4.7 Chloride Level 104 Carbon Dioxide Level 20 L Anion Gap 11 Blood Urea Nitrogen 8 Creatinine 0.75 Est Glomerular Filtrat Rate mL/min > 60 Glucose Level 100 Calcium Level 8.3 L Magnesium Level 1.5 L Total Bilirubin 0.8 Direct Bilirubin 0.00 Indirect Bilirubin 0.8 Aspartate Amino Transf (AST/SGOT) 43 Alanine Aminotransferase (ALT/SGPT) 17 Alkaline Phosphatase 112 Total Protein 7.2 Albumin 2.8 L Globulin 4.40 H Albumin/Globulin Ratio 0.63 Exam/Review of Systems Vital Signs Vitals Vital Signs Date Temp Pulse Resp B/P (MAP) Pulse Ox O2 O2 Flow FiO2 Time Delivery Rate 12/08/18 98.1 73 18 97/63 (74) 96 08:00 12/07/18 Room Air 20:00 12/05/18 6.0 15:49 Intake and Output 12/07/18 12/07/18 12/08/18 1515:00 23:00 07:00 OutputOutput Total 450 ml BalanceBalance -450 ml Medications Medications Current Medications IV Flush (NS 3 ml) 3 ml PER PROTOCOL IV ; Start 12/04/18 at 19:30 Ondansetron HCl (Zofran Inj) 4 mg Q6H PRN IV NAUSEA AND/OR VOMITING Last administered on 12/08/18 16:06; Admin Dose 4 MG; Start 12/04/18 at 19:30 Morphine Sulfate (morphine SULFATE (PF)) 2 mg Q4H PRN IV SEVERE PAIN LEVEL 7-10 Last administered on 12/08/18 16:06; Admin Dose 2 MG; Start 12/04/18 at 19:30 Lorazepam (Ativan) 1 mg Q6H PRN IV CONTROL WITHDRAWAL SYMPTOMS Last administered on 12/04/18 20:40; Admin Dose 1 MG; Start 12/04/18 at 19:30 Miscellaneous Information (Pending Santyl Order For Wound Care) This patient sanchez... PRN PRN XX PRESSURE WOUND; Start 12/05/18 at 01:00 Potassium Chloride (Klor-Con 20) 40 meq DAILY PO Last administered on 12/08/18 10:02; Admin Dose 40 MEQ; Start 12/05/18 at 14:30 Spironolactone (Aldactone) 100 mg DAILY PO Last administered on 12/07/18 08:15; Admin Dose 100 MG; Start 12/06/18 at 09:00 Trazodone HCl (Desyrel) 100 mg HS PO Last administered on 12/07/18 22:14; Admin Dose 100 MG; Start 12/05/18 at 21:00 Propranolol HCl (Inderal) 10 mg BID PO Last administered on 12/07/18 22:14; Admin Dose 10 MG; Start 12/06/18 at 21:00 Pantoprazole (Protonix Tab) 40 mg DAILY@06 PO ; Start 12/09/18 at 06:00 LETTY PRICE NP Dec 08, 2018 17:23
[2018-12-08] MEDS ORDERED: MAGNESIUM SULFATE 2 GM/50 ML 50 ML IVPB ONE (17:30)
[2018-12-08 20:13] VITALS: BP 95/57; PULSE 76; RESP 18
[2018-12-08] MEDS: traZODone 100 MG TAB PO SCH (21:56)
[2018-12-09] MEDS: morphine SULFATE/PF (2 MG/2 ML) SYG IV PRN ×6 (00:49→22:26)
[2018-12-09 01:17] VITALS: BP 149/90; PULSE 80; RESP 18
[2018-12-09] MEDS ORDERED: PANTOPRAZOLE (EC) 40 MG TAB PO ONE (05:00)
[2018-12-09] MEDS: PANTOPRAZOLE (EC) 40 MG TAB PO SCH (05:02)
[2018-12-09 07:56] VITALS: BP 84/56; PULSE 81; RESP 18
[2018-12-09] MEDS: POTASSIUM CHLORIDE (SR) 20 MEQ TAB PO SCH (08:31)
[2018-12-09] MEDS: SPIRONOLACTONE 50 MG TAB PO SCH (08:31)
[2018-12-09] MEDS: PROPRANOLOL 10 MG TAB PO SCH ×2 (08:35→20:25)
[2018-12-09 08:36] VITALS: BP 97/65; PULSE 95
[2018-12-09] MEDS: ONDANSETRON 4 MG INJ IV PRN ×2 (09:38→18:21)
[2018-12-09 09:43] VITALS: BP 130/89; PULSE 81
[2018-12-09 14:05] VITALS: BP 108/74; PULSE 81; RESP 16
--- NOTE | 2018-12-09 15:23 | PN ---
Date/Time of Note Date/Time of Note DATE: 12/09/18 TIME: 15:19 Assessment/Plan VTE Prophylaxis Risk score (from Nsg)>0 risk: 3 SCD applied (from Nsg): Yes Pharmacological prophylaxis: other (scds) Lines/Catheters IV Catheter Type (from Nrsg): Peripheral IV Urinary Cath still in place: No Assessment/Plan Hospital Course Assessment/Plan Assessment: Hematemesis/melena EGD 12/05/17 Portal hypertension gastropathy No active bleeding Routine fluidlavage. If future issues with gastric retention, consider workup for gastroparesis Esophageal varicesGrade 0-1, too small to band History of bleeding gastric ulcer one year ago Decompensated Alcoholic liver disease/cirrhosis- DF 6.1 -S/p paracentesis 12/06/18- 5 L removed Pancytopenia Alcohol abuse- discussed need to quit Homelessness 2 large abdominal hernias with decreased incisional wound Chronic depression A. fib RVR Cholelithiasis Plan: Continue PPI/propranolol 10 mg PO BID for EV Keep INR less than 1.5, Keep hemoglobin above 7.5 Discussed need to stop ETOH use 2g sodium diet as tolerated Monitor labs D/c planning per hospitalist - consider CM consult Pt will need to f/u with his GI after discharge Patient seen in collaboration with Subjective: Course reviewed with nursing staff Patient interviewed and examined All labs, imaging and other results reviewed Previous CDIFF neg, diarrhea slightly improved today. Tolerating diet well Started Xifaxan, to help with diarrhea and PHYSICAL EXAMINATION: GENERAL: Well developed, well nourished, alert & oriented x 3, in no acute distress SKIN: Midline abdominal wound, multiple bruising CHEST: Inspection within normal limits. CARDIOVASCULAR: Heart: Regular rate and rhythm RESPIRATORY: Lungs clear to auscultation GASTROINTESTINAL AND LIVER: Abdomen: Soft, generalized tenderness, pt c/o rib pain, ascites, 2 large abdominal hernias, distended- improved post paracentesis, midline decreased wound covered with dressing, no guarding, no rebound tenderness, normoactive bowel sounds. Rectal: Deferred. Result Diagram: 12/09/18 0650 12/09/18 0650 Results 24hrs Laboratory Tests Test 12/09/18 06:50 White Blood Count 3.2 L Red Blood Count 4.04 L Hemoglobin 11.1 L Hematocrit 34.2 L Mean Corpuscular Volume 84.7 Mean Corpuscular Hemoglobin 27.5 L Mean Corpuscular Hemoglobin Concent 32.5 Red Cell Distribution Width 18.1 H Platelet Count 63 L Mean Platelet Volume 11.9 H Immature Granulocytes % 1.300 H Neutrophils % 63.7 Lymphocytes % 17.5 Monocytes % 15.6 H Eosinophils % 1.6 Basophils % 0.3 Nucleated Red Blood Cells % 0.0 Immature Granulocytes # 0.040 H Neutrophils # 2.0 Lymphocytes # 0.6 L Monocytes # 0.5 Eosinophils # 0.1 Basophils # 0.0 Nucleated Red Blood Cells # 0.0 Sodium Level 131 L Potassium Level 4.5 Chloride Level 102 Carbon Dioxide Level 22 Anion Gap 7 Blood Urea Nitrogen 10 Creatinine 0.90 Est Glomerular Filtrat Rate mL/min > 60 Glucose Level 101 Calcium Level 8.3 L Phosphorus Level 4.2 Magnesium Level 1.6 L Total Bilirubin 0.5 Direct Bilirubin 0.00 Indirect Bilirubin 0.5 Aspartate Amino Transf (AST/SGOT) 47 H Alanine Aminotransferase (ALT/SGPT) 23 Alkaline Phosphatase 146 H Ammonia 11 Total Protein 7.0 Albumin 2.8 L Globulin 4.20 H Albumin/Globulin Ratio 0.66 Exam/Review of Systems Vital Signs Vitals Vital Signs Date Temp Pulse Resp B/P (MAP) Pulse Ox O2 O2 Flow FiO2 Time Delivery Rate 12/09/18 97.6 81 16 108/74 98 Room Air 14:05 (85) 12/05/18 6.0 15:49 Intake and Output 12/08/18 12/08/18 12/09/18 1515:00 23:00 07:00 IntakeIntake Total 480 ml 290 ml OutputOutput Total 300 ml 300 ml 300 ml BalanceBalance 180 ml -10 ml -300 ml Medications Medications Current Medications IV Flush (NS 3 ml) 3 ml PER PROTOCOL IV ; Start 12/04/18 at 19:30 Ondansetron HCl (Zofran Inj) 4 mg Q6H PRN IV NAUSEA AND/OR VOMITING Last administered on 12/09/18at 09:38; Admin Dose 4 MG; Start 12/04/18 at 19:30 Morphine Sulfate (morphine SULFATE (PF)) 2 mg Q4H PRN IV SEVERE PAIN LEVEL 7-10 Last administered on 12/09/18at 13:46; Admin Dose 2 MG; Start 12/04/18 at 19:30 Lorazepam (Ativan) 1 mg Q6H PRN IV CONTROL WITHDRAWAL SYMPTOMS Last administered on 12/04/18 20:40; Admin Dose 1 MG; Start 12/04/18 at 19:30 Miscellaneous Information (Pending [facility] Order For Wound Care) This patient sanchez... PRN PRN XX PRESSURE WOUND; Start 12/05/18 at 01:00 Potassium Chloride (Klor-Con 20) 40 meq DAILY PO Last administered on 12/09/18at 08:31; Admin Dose 40 MEQ; Start 12/05/18 at 14:30 Spironolactone (Aldactone) 100 mg DAILY PO Last administered on 12/09/18 08:31; Admin Dose 100 MG; Start 12/06/18 at 09:00 Trazodone HCl (Desyrel) 100 mg HS PO Last administered on 12/08/18at 21:56; Admin Dose 100 MG; Start 12/05/18 at 21:00 Propranolol HCl (Inderal) 10 mg BID PO Last administered on 12/07/18at 22:14; Admin Dose 10 MG; Start 12/06/18 at 21:00 Pantoprazole (Protonix Tab) 40 mg DAILY@06 PO Last administered on 12/09/18at 05:02; Admin Dose 40 MG; Start 12/09/18 at 06:00 Rifaximin (Xifaxan) 550 mg BID PO ; Start 12/09/18 at 21:00 SINDY ALTAMIRANO Dec 09, 2018 15:23
[2018-12-09] MEDS ORDERED: CEPASTAT LOZENGE MT PRN (17:30)
--- NOTE | 2018-12-09 17:51 | PN ---
Date/Time of Note Date/Time of Note DATE: 12/09/18 TIME: 17:50 Assessment/Plan VTE Prophylaxis Risk score (from Ns)>0 risk: 3 SCD applied (from Ns): Yes Pharmacological prophylaxis: NA/contraindicated Pharm contraindication: liver dx Lines/Catheters IV [facility]ter [facility] (from [facility]): Peripheral IV Urinary Cath still in place: No Assessment/Plan Hospital Course SUBJECTIVE: Denies any abdominal pain. Complains of a sore throat. OBJECTIVE: Physical Exam General: Adequately build 63-year-old male lying in bed in no apparent distress. HEENT: Normocephalic, atraumatic. Eyes: Anicteric sclerae, conjunctivae clear. ENT: Nasal septum midline, oral mucosa moist. Neck supple, no JVD noticed. Respiratory: Bilaterally diminished breath sounds. No use of accessory muscles of respiration. No adventitious breath sounds. Cardiovascular: S1, S2 heard. Abdomen: Ascites. Abdominal binder in place.. Bowel sounds positive in all 4 quadrants. Genitourinary: Deferred. Extremities: No cyanosis, no clubbing, no edema. Peripheral pulses palpable. Neurologic: Cranial nerves II through XII grossly intact. The patient is awake, alert, and oriented. Labs & Vitals per chart ASSESSMENT & PLAN 63-year-old male with a decompensated EtOH cirrhosis, A. fib, pulmonary hypertension, chronic abdominal wall wound secondary to a complication from previous surgery, and homelessness. The patient was seen at an outside ER for evaluation of vomiting blood and dark stool. Therefore, the patient was transferred to [facility] for further evaluation because of insurance reasons. 1. Gastrointestinal bleeding. -Status post esophagogastroduodenoscopy that showed no evidence of active bleeding. -However it showed portal hypertension and gastropathy with grade 0-1 esophageal varices. -Continue PPI and propranolol. 2. Decompensated alcoholic liver cirrhosis. -Status post paracentesis on 12/06/2017 with removal of 5 L of fluid. -Continue Aldactone. 3. Paroxysmal atrial fibrillation. -Likely secondary to electrolyte imbalances. -Resolved. 4. Chronic ventral hernia. -Continue abdominal binder. -Needs eventual repair. 5. Coagulopathy. -Most probably secondary to underlying liver disease. -Monitor for any bleeding. -Monitor H&H closely. 6. Homeless status. -Being followed by forensic social worker. 7. Fluids, electrolytes, and nutrition. -Low-cholesterol diet. 8. DVT prophylaxis -Bilateral SCDs. 9. Plan. -Continue PPI. -Monitor H&H closely. -Needs placement Vs ride back home. The patient was seen in collaboration with Dr. Ying Result Diagram: 12/09/18 0650 12/09/18 0650 Results 24hrs Laboratory Tests Test 12/09/18 06:50 White Blood Count 3.2 L Red Blood Count 4.04 L Hemoglobin 11.1 L Hematocrit 34.2 L Mean Corpuscular Volume 84.7 Mean Corpuscular Hemoglobin 27.5 L Mean Corpuscular Hemoglobin Concent 32.5 Red Cell Distribution Width 18.1 H Platelet Count 63 L Mean Platelet Volume 11.9 H Immature Granulocytes % 1.300 H Neutrophils % 63.7 Lymphocytes % 17.5 Monocytes % 15.6 H Eosinophils % 1.6 Basophils % 0.3 Nucleated Red Blood Cells % 0.0 Immature Granulocytes # 0.040 H Neutrophils # 2.0 Lymphocytes # 0.6 L Monocytes # 0.5 Eosinophils # 0.1 Basophils # 0.0 Nucleated Red Blood Cells # 0.0 Sodium Level 131 L Potassium Level 4.5 Chloride Level 102 Carbon Dioxide Level 22 Anion Gap 7 Blood Urea Nitrogen 10 Creatinine 0.90 Est Glomerular Filtrat Rate mL/min > 60 Glucose Level 101 Calcium Level 8.3 L Phosphorus Level 4.2 Magnesium Level 1.6 L Total Bilirubin 0.5 Direct Bilirubin 0.00 Indirect Bilirubin 0.5 Aspartate Amino Transf (AST/SGOT) 47 H Alanine Aminotransferase (ALT/SGPT) 23 Alkaline Phosphatase 146 H Ammonia 11 Total Protein 7.0 Albumin 2.8 L Globulin 4.20 H Albumin/Globulin Ratio 0.66 Exam/Review of Systems Vital Signs Vitals Vital Signs Date Temp Pulse Resp B/P (MAP) Pulse Ox O2 O2 Flow FiO2 Time Delivery Rate 12/09/18 97.6 81 16 108/74 98 Room Air 14:05 (85) 12/05/18 6.0 15:49 Intake and Output 12/08/18 12/08/18 12/09/18 1515:00 23:00 07:00 IntakeIntake Total 480 ml 290 ml OutputOutput Total 300 ml 300 ml 300 ml BalanceBalance 180 ml -10 ml -300 ml Medications Medications Current Medications IV Flush (NS 3 ml) 3 ml PER PROTOCOL IV ; Start 12/04/18 at 19:30 Ondansetron HCl (Zofran Inj) 4 mg Q6H PRN IV NAUSEA AND/OR VOMITING Last administered on 12/09/18 09:38; Admin Dose 4 MG; Start 12/04/18 at 19:30 Morphine Sulfate (morphine SULFATE (PF)) 2 mg Q4H PRN IV SEVERE PAIN LEVEL 7-10 Last administered on 12/09/18 13:46; Admin Dose 2 MG; Start 12/04/18 at 19:30 Lorazepam (Ativan) 1 mg Q6H PRN IV CONTROL WITHDRAWAL SYMPTOMS Last administered on 12/04/18 20:40; Admin Dose 1 MG; Start 12/04/18 at 19:30 Miscellaneous Information (Pending [facility] Order For Wound Care) This patient sanchez... PRN PRN XX PRESSURE WOUND; Start 12/05/18 at 01:00 Potassium Chloride (Klor-Con 20) 40 meq DAILY PO Last administered on 12/09/18 08:31; Admin Dose 40 MEQ; Start 12/05/18 at 14:30 Spironolactone (Aldactone) 100 mg DAILY PO Last administered on 12/09/18 08:31; Admin Dose 100 MG; Start 12/06/18 at 09:00 Trazodone HCl (Desyrel) 100 mg HS PO Last administered on 12/08/18 21:56; Admin Dose 100 MG; Start 12/05/18 at 21:00 Propranolol HCl (Inderal) 10 mg BID PO Last administered on 12/07/18 22:14; Admin Dose 10 MG; Start 12/06/18 at 21:00 Pantoprazole (Protonix Tab) 40 mg DAILY@06 PO Last administered on 12/09/18 05:02; Admin Dose 40 MG; Start 12/09/18 at 06:00 Rifaximin (Xifaxan) 550 mg BID PO ; Start 12/09/18 at 21:00 Phenol (Cepastat Lozenge) 1 lozenge Q1H PRN MT SORE THROAT; Start 12/09/18 at 17 :30 LETTY PRICE NP Dec 09, 2018 17:51
[2018-12-09 20:04] VITALS: BP 115/80; PULSE 82; RESP 18
[2018-12-09] MEDS: traZODone 100 MG TAB PO SCH (20:18)
[2018-12-09] MEDS: RIFAXIMIN 550 MG TAB PO SCH (20:18)
[2018-12-09] MEDS: CEPASTAT LOZENGE MT PRN (21:22)
[2018-12-09] MEDS ORDERED: morphine LIQ (10 MG/5 ML) CUP PO PRN (23:45)
[2018-12-10 02:16] VITALS: BP 102/72; PULSE 76; RESP 18
[2018-12-10] MEDS: morphine SULFATE/PF (2 MG/2 ML) SYG IV PRN ×6 (02:24→22:57)
[2018-12-10] MEDS: PANTOPRAZOLE (EC) 40 MG TAB PO SCH (06:31)
[2018-12-10] MEDS: CEPASTAT LOZENGE MT PRN (06:36)
[2018-12-10 08:00] VITALS: BP 98/58; PULSE 81; RESP 18
[2018-12-10 09:20] VITALS: BP 122/78; PULSE 78
[2018-12-10] MEDS: SPIRONOLACTONE 50 MG TAB PO SCH (09:23)
[2018-12-10] MEDS: POTASSIUM CHLORIDE (SR) 20 MEQ TAB PO SCH (09:24)
[2018-12-10] MEDS: PROPRANOLOL 10 MG TAB PO SCH ×2 (09:24→21:08)
[2018-12-10] MEDS: RIFAXIMIN 550 MG TAB PO SCH ×2 (09:24→21:08)
--- NOTE | 2018-12-10 11:22 | PN ---
Date/Time of Note Date/Time of Note DATE: 12/10/18 TIME: 11:22 Assessment/Plan VTE Prophylaxis Risk score (from Ns)>0 risk: 4 SCD applied (from Ns): Yes Pharmacological prophylaxis: NA/contraindicated Pharm contraindication: liver dx Lines/Catheters IV C[facility]ter Type (from [facility]): Peripheral IV Urinary Cath still in place: No Assessment/Plan Hospital Course SUBJECTIVE: Denies any abdominal pain. Complains of a sore throat. OBJECTIVE: Physical Exam General: Adequately build 63-year-old male lying in bed in no apparent distress. HEENT: Normocephalic, atraumatic. Eyes: Anicteric sclerae, conjunctivae clear. ENT: Nasal septum midline, oral mucosa moist. Neck supple, no JVD noticed. Respiratory: Bilaterally diminished breath sounds. No use of accessory muscles of respiration. No adventitious breath sounds. Cardiovascular: S1, S2 heard. Abdomen: Ascites. Abdominal binder in place.. Bowel sounds positive in all 4 quadrants. Genitourinary: Deferred. Extremities: No cyanosis, no clubbing, no edema. Peripheral pulses palpable. Neurologic: Cranial nerves II through XII grossly intact. The patient is awake, alert, and oriented. Labs & Vitals per chart ASSESSMENT & PLAN 63-year-old male with a decompensated EtOH cirrhosis, A. fib, pulmonary hypertension, chronic abdominal wall wound secondary to a complication from previous surgery, and homelessness. The patient was seen at an outside ER for evaluation of vomiting blood and dark stool. Therefore, the patient was transferred to [facility] for further evaluation because of insurance reasons. 1. Gastrointestinal bleeding. -Status post esophagogastroduodenoscopy that showed no evidence of active bleeding. -However it showed portal hypertension and gastropathy with grade 0-1 esophageal varices. -Continue PPI and propranolol. 2. Decompensated alcoholic liver cirrhosis. -Status post paracentesis on 12/06/2017 with removal of 5 L of fluid. -Continue Aldactone. 3. Paroxysmal atrial fibrillation. -Likely secondary to electrolyte imbalances. -Resolved. 4. Chronic ventral hernia. -Continue abdominal binder. -Needs eventual repair. 5. Coagulopathy. -Most probably secondary to underlying liver disease. -Monitor for any bleeding. -Monitor H&H closely. 6. Homeless status. -Being followed by social work specialist. 7. Fluids, electrolytes, and nutrition. -Low-cholesterol diet. 8. DVT prophylaxis -Bilateral SCDs. 9. Plan. -Continue PPI. -Monitor H&H closely. -Needs placement Vs ride back home. The patient was seen in collaboration with Dr. Ying Result Diagram: 12/09/18 0650 12/09/18 0650 Exam/Review of Systems Vital Signs Vitals Vital Signs Date Temp Pulse Resp B/P (MAP) Pulse Ox O2 O2 Flow FiO2 Time Delivery Rate 12/10/18 78 122/78 09:20 (93) 12/10/18 98.0 18 98 Room Air 08:00 Intake and Output 12/09/18 12/09/18 12/10/18 1515:00 23:00 07:00 IntakeIntake Total 700 ml 600 ml OutputOutput Total 700 ml BalanceBalance 700 ml -100 ml Medications Medications Current Medications IV Flush (NS 3 ml) 3 ml PER PROTOCOL IV ; Start 12/04/18 at 19:30 Ondansetron HCl (Zofran Inj) 4 mg Q6H PRN IV NAUSEA AND/OR VOMITING Last administered on 12/09/18 18:21; Admin Dose 4 MG; Start 12/04/18 at 19:30 Lorazepam (Ativan) 1 mg Q6H PRN IV CONTROL WITHDRAWAL SYMPTOMS Last administered on 12/04/18 20:40; Admin Dose 1 MG; Start 12/04/18 at 19:30 Miscellaneous Information (Pending [facility] Order For Wound Care) This patient sanchez... PRN PRN XX PRESSURE WOUND; Start 12/05/18 at 01:00 Potassium Chloride (Klor-Con 20) 40 meq DAILY PO Last administered on 12/10/18 09:24; Admin Dose 40 MEQ; Start 12/05/18 at 14:30 Spironolactone (Aldactone) 100 mg DAILY PO Last administered on 12/10/18 09:23; Admin Dose 100 MG; Start 12/06/18 at 09:00 Trazodone HCl (Desyrel) 100 mg HS PO Last administered on 12/09/18 20:18; Admin Dose 100 MG; Start 12/05/18 at 21:00 Propranolol HCl (Inderal) 10 mg BID PO Last administered on 12/10/18 09:24; Admin Dose 10 MG; Start 12/06/18 at 21:00 Pantoprazole (Protonix Tab) 40 mg DAILY@06 PO Last administered on 12/10/18at 06:31; Admin Dose 40 MG; Start 12/09/18 at 06:00 Rifaximin (Xifaxan) 550 mg BID PO Last administered on 12/10/18at 09:24; Admin Dose 550 MG; Start 12/09/18 at 21:00 Phenol (Cepastat Lozenge) 1 lozenge Q1H PRN MT SORE THROAT Last administered on 12/10/18at 06:36; Admin Dose 1 LOZENGE; Start 12/09/18 at 19:00 Morphine Sulfate (morphine SULFATE (PF)) 2 mg Q4H PRN IV SEVERE PAIN LEVEL 7-10 Last administered on 12/10/18 10:36; Admin Dose 2 MG; Start 12/10/18 at 01:30 LETTY PRICE NP Dec 10, 2018 11:22
[2018-12-10 14:00] VITALS: BP 121/74; PULSE 71; RESP 18
--- NOTE | 2018-12-10 14:29 | PN ---
Date/Time of Note Date/Time of Note DATE: 12/10/18 TIME: 14:24 Assessment/Plan VTE Prophylaxis Risk score (from Nsg)>0 risk: 4 SCD applied (from Nsg): Yes Pharmacological prophylaxis: other Lines/Catheters IV Catheter Type (from Nrsg): Peripheral IV Urinary Cath still in place: No Assessment/Plan Hospital Course Assessment/Plan Assessment: Hematemesis/melena EGD 12/05/17 Portal hypertension gastropathy No active bleeding Routine fluidlavage. If future issues with gastric retention, consider workup for gastroparesis Esophageal varicesGrade 0-1, too small to band History of bleeding gastric ulcer one year ago Decompensated Alcoholic liver disease/cirrhosis- DF 6.1 -S/p paracentesis 12/06/18- 5 L removed Pancytopenia Alcohol abuse- discussed need to quit Homelessness 2 large abdominal hernias with decreased incisional wound Chronic depression A. fib RVR Cholelithiasis Plan: Continue PPI/propranolol 10 mg PO BID for EV Keep INR less than 1.5, Keep hemoglobin above 7.5 Discussed need to stop ETOH use 2g sodium diet as tolerated Monitor labs D/c planning per hospitalist - Pt will need to f/u with his GI after discharge,. appears stable for out-pt management Patient seen in collaboration with /Juliana Subjective: Course reviewed with nursing staff Patient interviewed and examined All labs, imaging and other results reviewed Pt states BM are more formed, less frequently. No c/o n/v, he does c/o sore throat, and nasal congestion. But tolerating diet well. Pt appears stable for out-pt management PHYSICAL EXAMINATION: GENERAL: Well developed, well nourished, alert & oriented x 3, in no acute distress SKIN: Midline abdominal wound, multiple bruising CHEST: Inspection within normal limits. CARDIOVASCULAR: Heart: Regular rate and rhythm RESPIRATORY: Lungs clear to auscultation GASTROINTESTINAL AND LIVER: Abdomen: Soft, generalized tenderness, pt c/o rib pain, ascites, 2 large abdominal hernias, distended- improved post paracentesis, midline decreased wound covered with dressing, no guarding, no rebound tenderness, normoactive bowel sounds. Rectal: Deferred. Result Diagram: 12/09/18 0650 12/09/18 0650 Exam/Review of Systems Vital Signs Vitals Vital Signs Date Temp Pulse Resp B/P (MAP) Pulse Ox O2 O2 Flow FiO2 Time Delivery Rate 12/10/18 78 122/78 09:20 (93) 12/10/18 98.0 18 98 Room Air 08:00 Intake and Output 12/09/18 12/09/18 12/10/18 1515:00 23:00 07:00 IntakeIntake Total 700 ml 600 ml OutputOutput Total 700 ml BalanceBalance 700 ml -100 ml Medications Medications Current Medications IV Flush (NS 3 ml) 3 ml PER PROTOCOL IV ; Start 12/04/18 at 19:30 Ondansetron HCl (Zofran Inj) 4 mg Q6H PRN IV NAUSEA AND/OR VOMITING Last administered on 12/09/18 18:21; Admin Dose 4 MG; Start 12/04/18 at 19:30 Lorazepam (Ativan) 1 mg Q6H PRN IV CONTROL WITHDRAWAL SYMPTOMS Last administered on 12/04/18 20:40; Admin Dose 1 MG; Start 12/04/18 at 19:30 Miscellaneous Information (Pending [facility] Order For Wound Care) This patient sanchez... PRN PRN XX PRESSURE WOUND; Start 12/05/18 at 01:00 Potassium Chloride (Klor-Con 20) 40 meq DAILY PO Last administered on 12/10/18 09:24; Admin Dose 40 MEQ; Start 12/05/18 at 14:30 Spironolactone (Aldactone) 100 mg DAILY PO Last administered on 12/10/18 09:23; Admin Dose 100 MG; Start 12/06/18 at 09:00 Trazodone HCl (Desyrel) 100 mg HS PO Last administered on 12/09/18 20:18; Admin Dose 100 MG; Start 12/05/18 at 21:00 Propranolol HCl (Inderal) 10 mg BID PO Last administered on 12/10/18 09:24; Admin Dose 10 MG; Start 12/06/18 at 21:00 Pantoprazole (Protonix Tab) 40 mg DAILY@06 PO Last administered on 12/10/18 06:31; Admin Dose 40 MG; Start 12/09/18 at 06:00 Rifaximin (Xifaxan) 550 mg BID PO Last administered on 12/10/18 09:24; Admin Dose 550 MG; Start 12/09/18 at 21:00 Phenol (Cepastat Lozenge) 1 lozenge Q1H PRN MT SORE THROAT Last administered on 12/10/18at 06:36; Admin Dose 1 LOZENGE; Start 12/09/18 at 19:00 Morphine Sulfate (morphine SULFATE (PF)) 2 mg Q4H PRN IV SEVERE PAIN LEVEL 7-10 Last administered on 12/10/18at 10:36; Admin Dose 2 MG; Start 12/10/18 at 01:30 SINDY ALTAMIRANO Dec 10, 2018 14:29
[2018-12-10 19:52] VITALS: BP_SYST 114; BP_SYST 94; BP_DIAS 54; BP_DIAS 73; PULSE 68; RESP 20
[2018-12-10] MEDS: traZODone 100 MG TAB PO SCH (21:07)
[2018-12-11 01:52] VITALS: BP 117/71; PULSE 73; RESP 20
[2018-12-11] MEDS: morphine SULFATE/PF (2 MG/2 ML) SYG IV PRN ×2 (04:27→09:05)
[2018-12-11] MEDS: PANTOPRAZOLE (EC) 40 MG TAB PO SCH (05:18)
[2018-12-11] MEDS: CEPASTAT LOZENGE MT PRN (05:19)
[2018-12-11 08:09] VITALS: BP 110/74; PULSE 74; RESP 16
[2018-12-11 08:11] VITALS: BP 110/74; PULSE 74; RESP 16
[2018-12-11] MEDS: POTASSIUM CHLORIDE (SR) 20 MEQ TAB PO SCH (09:01)
[2018-12-11] MEDS: SPIRONOLACTONE 50 MG TAB PO SCH (09:01)
[2018-12-11] MEDS: PROPRANOLOL 10 MG TAB PO SCH (09:02)
[2018-12-11] MEDS: RIFAXIMIN 550 MG TAB PO SCH (09:02)
[2018-12-11] MEDS: ONDANSETRON 4 MG INJ IV PRN (09:05)
[2018-12-11] MEDS ORDERED: PANT40TA4 PO (11:31)
[2018-12-11] MEDS ORDERED: PROP10TA6 PO (11:31)
[2018-12-11] MEDS ORDERED: SPIR50TA PO (11:31)
--- NOTE | 2018-12-11 11:36 | PDOCDIS ---
Discharge Instructions CONDITION [id number] Patient Condition: [id number] Stable HOME CARE INSTRUCTIONS: [id number] Special Diet: [id number] Low chol/fat FOLLOW UP/APPOINTMENTS Follow-up Plan Follow-up with your primary care physician in 2 weeks. OTHER ORDERS: Other Orders: 1. Take medications as per prescription. 2. Take a regular, preferably low-cholesterol diet. 3. Follow-up with your primary care physician in 2 weeks. Have your primary care physician arrange for outpatient surgical follow-up regarding your abdominal hernia. 4. Resume activities as tolerated. 5. Please go to the nearest emergency room if you have any blood in stool, vomiting blood, or any other unusual signs/symptoms. LETTY PRICE NP Dec 11, 2018 11:36
--- NOTE | 2018-12-11 13:40 | DS ---
Date/Time of Note Date/Time of Note DATE: 12/11/18 TIME: 13:39 Discharge Summary Admission/Discharge Info Admit Date/Time Dec 04, 2018 at 17:58 Discharge Date/Time Discharge Diagnosis 1. Gastrointestinal bleeding. 2. Portal hypertension and gastropathy with grade 0-1 esophageal varices. 3. Decompensated alcoholic liver cirrhosis. 4. Paroxysmal atrial fibrillation. 5. Chronic ventral hernia. 6. Coagulopathy. 7. Homeless status. 8. Pancytopenia. 9. Pulmonary hypertension. PA systolic pressure 44 mmHg. Patient Condition: Stable Consults 1. Radha Morataya MD, Gastroenterology. Procedures Esophagogastroduodenoscopy Impression: 1. Portal hypertensive gastropathy. 2. No active bleeding. 3. Esophageal varices. Grade 0-1. 2D Echocardiogram Conclusions Normal left ventricular systolic function. Normal left ventricular cavity size. Mild concentric left ventricular hypertrophy. Ejection fraction is visually estimated at 55 %. Abnormal Diastolic Function. Normal right ventricular size. Normal right ventricular systolic function. There is severe enlargement of left atrium. The right atrium is normal in size. Mild aortic stenosis. Mean PG 13.00 mmHg. Aortic cusps appear severely calcified. Trace aortic valve regurgitation. Normal appearance of the tricuspid valve. Estimated peak PA systolic pressure 44 mmHg. There is mild tricuspid regurgitation. Mild mitral leaflet calcification. Mild mitral annular calcification. Trace mitral regurgitation. Normal pericardium with no significant pericardial effusion. CXR 12/05/2018 IMPRESSION: 1. No radiographic evidence of acute cardiopulmonary disease. 2. Mild cardiomegaly. Hx of Present Illness This is a 63-year-old male with a decompensated EtOH cirrhosis, A. fib, pulmonary hypertension, chronic abdominal wall wound secondary to a complication from previous surgery, and homelessness. The patient was seen at an outside ER for evaluation of vomiting blood and dark stool. Therefore, the patient was transferred to [facility] for further evaluation because of insurance reasons. Hospital Course The patient was started on proton pump inhibitor therapy. Serial H&H were ordered. A gastroenterology consult was obtained. The patient underwent an esophagogastroduodenoscopy on 12/05/2018 that was showing no active bleeding. How ever, it showed portal hypertensive gastropathy as well as grade 0-1 esophageal varices. The patient was consequently started on propranolol along with PPI. The patient was also started on Aldactone. The patient did not require any blood transfusion as the patient's H&H remained stable. The patient has underlying decompensated alcoholic liver cirrhosis. The patient underwent a paracentesis on 12/06/2018 with removal of 5 L of fluid. The fluid culture showed no evidence of SBP. The patient also had a brief period of paroxysmal atrial fibrillation during the hospital course that resolved on its own. It could have been most probably secondary to electrolyte imbalances that the patient had at the time. The patient is not an ideal candidate for any type of anticoagulation because of his underlying alcoholic liver disease. The patient has history of chronic ventral hernia that the patient refers to happened after a surgery approximately 1 year ago. The patient was maintained on an abdominal binder. This needs eventual repair by the surgeon who did the patient's prior surgery. The patient has underlying coagulopathy secondary to underlying liver disease. The patient was also incidentally noticed to have pulmonary hypertension with a PA systolic pressure 44 mmHg. The patient also had mild aortic stenosis present on 2D echocardiogram. The patient is homeless. Therefore, psychosocial rehabilitation counselor has been following the patient. As per the patient he needed a ride to [place]. A taxi voucher was provided by the psychosocial rehabilitation counselor and the patient will be transported to [place] where he was transferred from. Discharge Instructions 1. Take medications as per prescription. 2. Take a regular, preferably low-cholesterol diet. 3. Follow-up with your primary care physician in 2 weeks. Have your primary care physician arrange for outpatient surgical follow-up regarding your abdominal hernia. 4. Resume activities as tolerated. 5. Please go to the nearest emergency room if you have any blood in stool, vomiting blood, or any other unusual signs/symptoms. The patient verbalized understanding of his discharge instructions. At this time I would like to thank all the consultants for seeing the patient, doing the necessary procedures, and providing clinical recommendations. The patient was seen in collaboration with Dr. Ying [facility] Active Scripts Pantoprazole* (Pantoprazole*) 40 Mg Tablet., 40 MG PO DAILY@06, #30 Prov:LETTY PRICE NP 12/11/18 Spironolactone* (Aldactone*) 50 Mg Tablet, 100 MG PO DAILY, #30 TAB Prov:LETTY PRICE NP 12/11/18 Propranolol Hcl* (Propranolol Hcl*) 10 Mg Tablet, 10 MG PO BID, #90 TAB Prov:LETTY PRICE NP 12/11/18 Discontinued Reported Medications Hydrocodone/Acetaminophen ([place] 5-325 Tablet) 1 Each Tablet, 1 EACH PO Q4 PRN for PAIN, TAB 12/05/18 Amlodipine Besylate* (Amlodipine Besylate*) 10 Mg Tablet, 10 MG PO DAILY, #30 TAB 12/05/18 Metoprolol Tartrate* (Lopressor*) 25 Mg Tab, 25 MG PO DAILY, #60 TAB 12/05/18 Follow-up Plan Follow-up with your primary care physician in 2 weeks. Primary Care Provider Not On Staff Doctor Time spent on discharge: > 30 minutes LETTY PRICE NP Dec 11, 2018 13:40
== END 2018-12-11 13:55 | disposition home or self-care (01) | DRG 378 ==
LOC: TEL 17:58 → 5EC 12-07 16:21
PROVIDERS: ADMIT Internal Medicine; ATTEND Internal Medicine
PROC: 0DJ08ZZ Inspection of Upper Intestinal Tract, Via Natural or Artificial Opening Endoscopic (ICD-10-PCS; principal; 2018-12-05 15:00)
DX: K92.0 Hematemesis (principal); K76.6 Portal hypertension; D61.818 Other pancytopenia; I85.10 Secondary esophageal varices without bleeding; K92.1 Melena; K70.31 Alcoholic cirrhosis of liver with ascites; K31.89 Other diseases of stomach and duodenum; I48.0 Paroxysmal atrial fibrillation; Z59.0 Homelessness; F32.9 Major depressive disorder, single episode, unspecified; K43.9 Ventral hernia without obstruction or gangrene; I27.20 Pulmonary hypertension, unspecified
CPT/HCPCS: 71045; 76700; 80053; 82042; 82140; 82270; 83036; 83615; 83690; 83735; 84100; 84443; 84484; 85025; 85610; 85730; 86704; 86709; 86803; 87070; 87075; 87081; 87340; 87880; 88104; 88305; 89051; 93306; C9113; J2060; J2274; J2354; J2405; J3411; J3475; J3480; J7030; J7042